=== PATIENT | male | born 1975 | race Caucasian/White ===

== ENCOUNTER 2024-06-04 21:13 | Inpatient (IN) | payer OTHER ==
[~2024-06-04] VITALS: Ht 172.7 cm; Wt 80.3 kg
[2024-06-04 22:05] LABS: BASOPHILS # (AUTO) 0.1 K/uL (0.0-0.2); BASOPHILS % (AUTO) 0.5 % (0.0-2.0); EOSINOPHILS # (AUTO) 0.1 K/uL (0.0-0.7); EOSINOPHILS % (AUTO) 1.2 % (0.0-6.0); HEMATOCRIT 34 % (39-51); HEMOGLOBIN 11.5 g/dL (13.5-17.5); LYMPHOCYTES # (AUTO) 1.1 K/uL (0.8-4.8); LYMPHOCYTES % (AUTO) 10.3 % (20.0-44.0); MEAN CORPUSCULAR HEMOGLOBIN 37 PG (26.0-33.0); MEAN CORPUSCULAR HGB CONC 34 g/dl (31.0-36.0); MEAN CORPUSCULAR VOLUME 110 fL (80-96); MONOCYTES # (AUTO) 0.9 K/uL (0.1-1.30); MONOCYTES % (AUTO) 7.9 % (2.0-12.0); NEUTROPHILS # (AUTO) 8.9 K/uL (1.8-8.9); NEUTROPHILS % (AUTO) 80.1 % (43.0-81.0); PLATELET COUNT (AUTO) 105 K/uL (150-450); RED BLOOD CELL COUNT(AUTO) 3.12 MIL/uL (4.5-6.0); RED CELL DISTRIBUTION WIDTH 17.1 % (11.5-15.0); WHITE BLOOD COUNT (AUTO) 11.1 K/uL (4.3-11.0)
[2024-06-04 22:18] LABS: INR 1.18 (0.91-1.10); PARTIAL THROMBOPLASTIN TIME 26.2 SEC (24.3-34.3); PROTHROMBIN TIME 12.4 SECS (9.2-11.1)
[2024-06-04 22:19] LABS: ALBUMIN 2.8 g/dL (3.4-5.0); BILIRUBIN,DIRECT 1.9 mg/dL (0.0-0.2); BILIRUBIN,TOTAL 2.8 mg/dL (0.2-1.0); CALCIUM, SERUM 8.5 mg/dL (8.5-10.1); CREATININE 0.8 mg/dL (0.6-1.3); POTASSIUM 3.6 mmol/L (3.5-5.1); TOTAL PROTEIN, SERUM 7.6 g/dL (6.4-8.2)
[2024-06-04] MEDS ORDERED: OLANZAPINE 10 MG VIAL IM ONE (22:24)
[2024-06-04] MEDS ORDERED: LORAZEPAM INJ 2 MG/ML VIAL ONE (22:25)
[2024-06-04] MEDS: LORAZEPAM INJ 2 MG/ML VIAL IM ONE (22:39)
[2024-06-04] MEDS: OLANZAPINE 10 MG VIAL IM ONE (22:39)
[2024-06-04 22:44] LABS: ALCOHOL, BLOOD < 3 mg/dL (0-10)
[2024-06-04 23:30] LABS: ADD URINE CULTURE NO; APPEARANCE,URINE CLEAR (CLEAR); BACTERIA,URINE Rare /HPF (None Seen); BILIRUBIN,URINE 2+ (NEGATIVE); BLOOD, URINE TRACE-INTA Ery/uL (NEGATIVE); COLOR,URINE YELLOW (YELLOW); KETONES,URINE NEGATIVE (NEGATIVE); LEUKOCYTE ESTERASE ,URINE NEGATIVE (NEGATIVE); NITRITE, URINE NEGATIVE (NEGATIVE); PH,URINE 7.5 (5.0-8.0); PROTEIN,URINE NEGATIVE (NEGATIVE); SQUAMOUS EPITHELIAL CELL,UR Few /HPF (None Seen); UGLUCOSE TRACE mg/dL (NEGATIVE); WBC,URINE 0-2 /HPF (0-3)
[2024-06-04 23:38] LABS: AMPHETAMINE, URINE NEGATIVE (NEGATIVE); BARBITURATE, URINE NEGATIVE (NEGATIVE); BENZODIAZEPINE, URINE NEGATIVE (NEGATIVE); CANNABINOID, URINE NEGATIVE (NEGATIVE); COCCAINE, URINE NEGATIVE (NEGATIVE); OPIATE, URINE NEGATIVE (NEGATIVE); PHENCYCLIDINE SCREEN,URINE NEGATIVE (NEGATIVE)
[2024-06-05] VITALS: BP 142/91; TEMP 98.2; O2SAT 96
[2024-06-05] MEDS ORDERED: ONDANSETRON HCL/PF 4 MG/2 ML VIAL IVP PRN
[2024-06-05] MEDS ORDERED: Z GUARD REMEDY 4 OZ OINT TP PRN
[2024-06-05] MEDS: LACTULOSE UDC 200 G in SODIUM CHLORIDE IRRIG SOLUTION 400 ML IR SCH
[2024-06-05] MEDS ORDERED: MAG HYDROX/AL HYDROX/SIMETH 30 ML UDC PO PRN
[2024-06-05] MEDS ORDERED: MAGNESIUM HYDROXIDE 30 ML UDC PO PRN
[2024-06-05] MEDS ORDERED: ACETAMINOPHEN 325 MG TABLET PO PRN
[2024-06-05] MEDS ORDERED: Thiamine 100 MG/ML VIAL ONE (00:39)
[2024-06-05] MEDS: Thiamine 100 MG in IV D5W 50 ML IV SCH (00:58)
[2024-06-05] MEDS: LORAZEPAM INJ 2 MG/ML VIAL IV PRN (01:29)
[2024-06-05] MEDS ORDERED: LACTULOSE 10 G/15 ML UDC (PYXIS) ONE ×3 (03:18→03:33)
[2024-06-05 04:00] VITALS: BP 151/91; TEMP 98.9; O2SAT 94
[2024-06-05] MEDS: LACTULOSE 10 G/15 ML UDC (PYXIS) PO PRN (04:20)
[2024-06-05 06:36] LABS: BASOPHILS % (AUTO) 0.5 % (0.0-2.0); EOSINOPHILS # (AUTO) 0.1 K/uL (0.0-0.7); EOSINOPHILS % (AUTO) 1.5 % (0.0-6.0); HEMATOCRIT 30 % (39-51); HEMOGLOBIN 10.6 g/dL (13.5-17.5); LYMPHOCYTES # (AUTO) 0.6 K/uL (0.8-4.8); LYMPHOCYTES % (AUTO) 7.1 % (20.0-44.0); MEAN CORPUSCULAR HEMOGLOBIN 38 PG (26.0-33.0); MEAN CORPUSCULAR HGB CONC 35 g/dl (31.0-36.0); MEAN CORPUSCULAR VOLUME 109 fL (80-96); MONOCYTES # (AUTO) 0.7 K/uL (0.1-1.30); MONOCYTES % (AUTO) 8.7 % (2.0-12.0); NEUTROPHILS # (AUTO) 6.9 K/uL (1.8-8.9); NEUTROPHILS % (AUTO) 82.2 % (43.0-81.0); PLATELET COUNT (AUTO) 97 K/uL (150-450); RED BLOOD CELL COUNT(AUTO) 2.79 MIL/uL (4.5-6.0); RED CELL DISTRIBUTION WIDTH 16.8 % (11.5-15.0); WHITE BLOOD COUNT (AUTO) 8.4 K/uL (4.3-11.0)
[2024-06-05 07:00] LABS: ALBUMIN 2.6 g/dL (3.4-5.0); BILIRUBIN,DIRECT 1.7 mg/dL (0.0-0.2); BILIRUBIN,TOTAL 2.6 mg/dL (0.2-1.0); CALCIUM, SERUM 8.9 mg/dL (8.5-10.1); CREATININE 0.7 mg/dL (0.6-1.3); MAGNESIUM 1.8 mg/dL (1.8-2.4); PHOSPHORUS 2.4 mg/dL (2.5-4.9); POTASSIUM 3.1 mmol/L (3.5-5.1); TOTAL PROTEIN, SERUM 6.9 g/dL (6.4-8.2)
[2024-06-05 08:00] VITALS: BP 136/112; TEMP 98.3; O2SAT 96
[2024-06-05 08:28] LABS: BAND % (MANUAL) 2 % (0.0-5.0); BASOPHILS % (MANUAL) 0 % (0.0-2.0); EOSINOPHILS % (MANUAL) 0 % (0-4); LYMPHOCYTES % (MANUAL) 10 % (16-48); MONOCYTES % (MANUAL) 8 % (0-11.0); NEUTROPHILS % (MANUAL) 80 (42-76); PLATELET ESTIMATE DECREASED
[2024-06-05] MEDS ORDERED: LACTULOSE 10 G/15 ML UDC (PYXIS) PO PRN (10:00)
[2024-06-05] MEDS: CHLORDIAZEPOXIDE HCL 25 MG CAPSULE PO SCH (10:41)
[2024-06-05] MEDS: THIAMINE HCL 100 MG TABLET PO SCH (10:41)
[2024-06-05] MEDS: PANTOPRAZOLE 40 MG VIAL IV SCH (10:41)
[2024-06-05] MEDS: RIFAXIMIN 550 MG TABLET PO SCH (10:41)
[2024-06-05] MEDS: FOLIC ACID 1 MG TABLET PO SCH (10:41)
[2024-06-05 12:00] VITALS: BP 153/120; TEMP 97.9; O2SAT 95
[2024-06-05] MEDS: POTASSIUM CHLORIDE 20 MEQ TAB.PRT.SR PO SCH (12:40)
[2024-06-05 16:00] VITALS: BP 131/102; TEMP 99.3; O2SAT 97
[2024-06-05] MEDS: K PHOS NEUTRAL 250 MG TABLET PO ONE (17:13)
[2024-06-05 20:00] VITALS: BP 151/100; TEMP 98.7; O2SAT 95
[2024-06-06] VITALS (7 sets, daily range): BP systolic 115–159; BP diastolic 72–112; TEMP 97.9–98.4; O2SAT 93–98
[2024-06-06 06:20] LABS: BASOPHILS % (AUTO) 0.4 % (0.0-2.0); EOSINOPHILS % (AUTO) 0.4 % (0.0-6.0); HEMATOCRIT 37 % (39-51); HEMOGLOBIN 12.6 g/dL (13.5-17.5); LYMPHOCYTES # (AUTO) 0.5 K/uL (0.8-4.8); LYMPHOCYTES % (AUTO) 4.7 % (20.0-44.0); MEAN CORPUSCULAR HEMOGLOBIN 38 PG (26.0-33.0); MEAN CORPUSCULAR HGB CONC 34 g/dl (31.0-36.0); MEAN CORPUSCULAR VOLUME 112 fL (80-96); MONOCYTES # (AUTO) 0.8 K/uL (0.1-1.30); NEUTROPHILS # (AUTO) 9.6 K/uL (1.8-8.9); NEUTROPHILS % (AUTO) 87.5 % (43.0-81.0); PLATELET COUNT (AUTO) 127 K/uL (150-450); RED BLOOD CELL COUNT(AUTO) 3.32 MIL/uL (4.5-6.0); RED CELL DISTRIBUTION WIDTH 16.7 % (11.5-15.0); WHITE BLOOD COUNT (AUTO) 10.9 K/uL (4.3-11.0)
[2024-06-06 06:38] LABS: ALBUMIN 2.8 g/dL (3.4-5.0); BILIRUBIN,DIRECT 2.1 mg/dL (0.0-0.2); BILIRUBIN,TOTAL 3.2 mg/dL (0.2-1.0); CALCIUM, SERUM 9.3 mg/dL (8.5-10.1); CREATININE 0.7 mg/dL (0.6-1.3); POTASSIUM 3.5 mmol/L (3.5-5.1); TOTAL PROTEIN, SERUM 7.6 g/dL (6.4-8.2)
[2024-06-06 08:16] LABS: BASOPHILS % (MANUAL) 0 % (0.0-2.0); EOSINOPHILS % (MANUAL) 0 % (0-4); LYMPHOCYTES % (MANUAL) 6 % (16-48); MONOCYTES % (MANUAL) 8 % (0-11.0); NEUTROPHILS % (MANUAL) 86 (42-76)
[2024-06-06 08:17] LABS: ANISOCYTOSIS 1+; PLATELET ESTIMATE DECREASED
[2024-06-06] MEDS: ASPIRIN 81 MG TAB.CHEW PO SCH (09:28)
[2024-06-06] MEDS: METOPROLOL TARTRATE 25 MG TABLET PO SCH (17:47)
[2024-06-06 18:25] LABS: ABG BASE EXCESS -0.1 mmol/L (-2.0-3.0); ABG OXYGEN SATURATION 92.5 % (94.0-98.0); ABG PCO2 29.1 mmHg (35.0-48.0); ABG PH 7.498 (7.350-7.450); ABG PO2 64.5 mmHg (83.0-108.0); ABG TOTAL HEMOGLOBIN 12.9 G/dL (13.5-17.5); AaDO2 50.4 mmHg; COHb 0.6 % (0.5-1.5); MetHb 0.2 % (0.0-1.5); O2Hb 91.8 % (94.0-97.0); SITE, ABG Right Radial; VENT MODE, BG ROOM AIR
[2024-06-07] VITALS: BP 116/72; TEMP 98.3; O2SAT 96
[2024-06-07 04:00] VITALS: BP 124/83; TEMP 98; O2SAT 97
[2024-06-07 08:00] VITALS: BP 131/97; TEMP 98.6; O2SAT 95
[2024-06-07 08:40] LABS: BASOPHILS # (AUTO) 0.1 K/uL (0.0-0.2); BASOPHILS % (AUTO) 0.7 % (0.0-2.0); EOSINOPHILS # (AUTO) 0.1 K/uL (0.0-0.7); EOSINOPHILS % (AUTO) 0.7 % (0.0-6.0); HEMATOCRIT 36 % (39-51); HEMOGLOBIN 11.8 g/dL (13.5-17.5); LYMPHOCYTES # (AUTO) 0.9 K/uL (0.8-4.8); LYMPHOCYTES % (AUTO) 7.7 % (20.0-44.0); MEAN CORPUSCULAR HEMOGLOBIN 37 PG (26.0-33.0); MEAN CORPUSCULAR HGB CONC 33 g/dl (31.0-36.0); MEAN CORPUSCULAR VOLUME 112 fL (80-96); MONOCYTES # (AUTO) 1.2 K/uL (0.1-1.30); MONOCYTES % (AUTO) 9.8 % (2.0-12.0); NEUTROPHILS # (AUTO) 9.8 K/uL (1.8-8.9); NEUTROPHILS % (AUTO) 81.1 % (43.0-81.0); PLATELET COUNT (AUTO) 175 K/uL (150-450); RED BLOOD CELL COUNT(AUTO) 3.18 MIL/uL (4.5-6.0); RED CELL DISTRIBUTION WIDTH 17.5 % (11.5-15.0)
[2024-06-07] MEDS: SPIRONOLACTONE 25 MG TABLET PO SCH (08:51)
[2024-06-07] MEDS: PANTOPRAZOLE 40 MG TABLET.DR PO SCH (08:52)
[2024-06-07 09:07] LABS: ALBUMIN 2.5 g/dL (3.4-5.0); BILIRUBIN,DIRECT 1.7 mg/dL (0.0-0.2); BILIRUBIN,TOTAL 2.6 mg/dL (0.2-1.0); CALCIUM, SERUM 8.9 mg/dL (8.5-10.1); CREATININE 0.7 mg/dL (0.6-1.3); POTASSIUM 3.4 mmol/L (3.5-5.1); TOTAL PROTEIN, SERUM 7.1 g/dL (6.4-8.2)
[2024-06-07 12:00] VITALS: BP 114/82; TEMP 98.4; O2SAT 94
[2024-06-07] MEDS: LACTULOSE 10 G/15 ML UDC (PYXIS) PO SCH (12:41)
[2024-06-07 16:00] VITALS: BP 124/90; TEMP 97.7; O2SAT 94
[2024-06-07 20:00] VITALS: BP 103/79; TEMP 97.7; O2SAT 91
[2024-06-08] VITALS (7 sets, daily range): BP systolic 98–113; BP diastolic 71–85; TEMP 97.2–98.7; O2SAT 92–97
[2024-06-08] MEDS: LACTULOSE 10 G/15 ML UDC (PYXIS) PO SCH ×2 (03:00→11:54)
[2024-06-08 06:29] LABS: BASOPHILS # (AUTO) 0.1 K/uL (0.0-0.2); BASOPHILS % (AUTO) 1.1 % (0.0-2.0); EOSINOPHILS # (AUTO) 0.2 K/uL (0.0-0.7); EOSINOPHILS % (AUTO) 1.8 % (0.0-6.0); HEMATOCRIT 35 % (39-51); HEMOGLOBIN 11.8 g/dL (13.5-17.5); LYMPHOCYTES # (AUTO) 0.8 K/uL (0.8-4.8); LYMPHOCYTES % (AUTO) 8.9 % (20.0-44.0); MEAN CORPUSCULAR HEMOGLOBIN 37 PG (26.0-33.0); MEAN CORPUSCULAR HGB CONC 34 g/dl (31.0-36.0); MEAN CORPUSCULAR VOLUME 111 fL (80-96); MONOCYTES # (AUTO) 1.1 K/uL (0.1-1.30); MONOCYTES % (AUTO) 11.9 % (2.0-12.0); NEUTROPHILS % (AUTO) 76.3 % (43.0-81.0); PLATELET COUNT (AUTO) 210 K/uL (150-450); RED BLOOD CELL COUNT(AUTO) 3.16 MIL/uL (4.5-6.0); RED CELL DISTRIBUTION WIDTH 17.7 % (11.5-15.0); WHITE BLOOD COUNT (AUTO) 9.2 K/uL (4.3-11.0)
[2024-06-08 07:01] LABS: ALBUMIN 2.5 g/dL (3.4-5.0); BILIRUBIN,TOTAL 2.6 mg/dL (0.2-1.0); CALCIUM, SERUM 9.1 mg/dL (8.5-10.1); CREATININE 0.9 mg/dL (0.6-1.3); POTASSIUM 3.2 mmol/L (3.5-5.1)
[2024-06-08] MEDS: POTASSIUM CHLORIDE 20 MEQ TAB.PRT.SR PO SCH (10:28)
[2024-06-09] VITALS: BP 121/89; TEMP 98.1; O2SAT 97
[2024-06-09 04:00] VITALS: BP 106/73; TEMP 98.1; O2SAT 98
[2024-06-09 07:14] LABS: ALBUMIN 2.4 g/dL (3.4-5.0); BILIRUBIN,TOTAL 2.5 mg/dL (0.2-1.0); CREATININE 0.7 mg/dL (0.6-1.3); POTASSIUM 3.1 mmol/L (3.5-5.1); TOTAL PROTEIN, SERUM 6.7 g/dL (6.4-8.2)
[2024-06-09 08:00] VITALS: BP 106/81; TEMP 98.1; O2SAT 97
[2024-06-09] MEDS: POTASSIUM CHLORIDE 20 MEQ TAB.PRT.SR PO ONE (09:59)
[2024-06-09] MEDS: CHLORDIAZEPOXIDE HCL 25 MG CAPSULE PO SCH (11:30)
[2024-06-09 12:00] VITALS: BP 102/76; TEMP 98.1; O2SAT 95
[2024-06-09 16:00] VITALS: BP 88/65; TEMP 97.5; O2SAT 96
[2024-06-09] MEDS: IV NS 0.9% 500 ML BAG IV ONE (17:16)
[2024-06-09] MEDS: ENSURE ENLIVE 237 ML LIQUID (VANILLA) PO SCH (17:45)
[2024-06-09 20:00] VITALS: BP 109/78; TEMP 97.9; O2SAT 95
[2024-06-10] VITALS: BP 106/65; TEMP 98; O2SAT 97
[2024-06-10 07:02] LABS: ALBUMIN 2.3 g/dL (3.4-5.0); CALCIUM, SERUM 8.8 mg/dL (8.5-10.1); CREATININE 0.8 mg/dL (0.6-1.3); POTASSIUM 3.3 mmol/L (3.5-5.1); TOTAL PROTEIN, SERUM 6.4 g/dL (6.4-8.2)
[2024-06-10 07:38] VITALS: BP 106/65; TEMP 98; O2SAT 97
[2024-06-10 08:00] VITALS: BP 102/75; TEMP 97.7; O2SAT 97
[2024-06-10] MEDS: POTASSIUM CHLORIDE 20 MEQ TAB.PRT.SR PO ONE (10:41)
[2024-06-10 12:00] VITALS: BP 100/67; TEMP 97.7; O2SAT 98
[2024-06-10 16:00] VITALS: BP 100/65; TEMP 98.2; O2SAT 98
[2024-06-10 20:00] VITALS: BP 108/69; TEMP 97.9; O2SAT 99
[2024-06-11] VITALS: BP 130/87; TEMP 97.7; O2SAT 97
[2024-06-11 04:00] VITALS: BP 105/69; TEMP 97.4; O2SAT 95
[2024-06-11 08:02] VITALS: BP 103/68; TEMP 97.5; O2SAT 95
[2024-06-11] MEDS ORDERED: PANT40TA49 PO (10:40)
[2024-06-11] MEDS ORDERED: RIFA550T PO (10:40)
[2024-06-11] MEDS ORDERED: LACT20SO4 PO (10:40)
[2024-06-11] MEDS ORDERED: Folic Acid PO (10:40)
[2024-06-11] MEDS ORDERED: ASPI-1169 PO (10:40)
[2024-06-11] MEDS ORDERED: SPIR25TA6 PO (10:40)
[2024-06-11] MEDS ORDERED: METO25TA20 PO (10:40)
[2024-06-11] MEDS ORDERED: Thiamine HCL PO (10:40)
[2024-06-11 12:00] VITALS: BP 101/70; TEMP 97.9; O2SAT 95
== END 2024-06-11 13:48 | DRG 432 ==
LOC: ER 21:21 → TELE1 23:30 → UNDODISIN 06-09 16:22
PROVIDERS: ATTEND Internal Medicine
PROC: 0W9G3ZZ Drainage of Peritoneal Cavity, Percutaneous Approach (ICD-10-PCS; principal; 2024-06-05)
DX: K70.31 Alcoholic cirrhosis of liver with ascites (principal); I21.A1 Myocardial infarction type 2; J96.01 Acute respiratory failure with hypoxia; F10.139 Alcohol abuse with withdrawal, unspecified; E87.1 Hypo-osmolality and hyponatremia; E72.20 Disorder of urea cycle metabolism, unspecified; I42.9 Cardiomyopathy, unspecified; K76.82 Hepatic encephalopathy; Y90.0 Blood alcohol level of less than 20 mg/100 ml; D63.8 Anemia in other chronic diseases classified elsewhere; I10 Essential (primary) hypertension; I48.91 Unspecified atrial fibrillation; Z88.2 Allergy status to sulfonamides; Z88.3 Allergy status to other anti-infective agents; D72.829 Elevated white blood cell count, unspecified; D53.9 Nutritional anemia, unspecified; E88.09 Other disorders of plasma-protein metabolism, not elsewhere classified; K76.0 Fatty (change of) liver, not elsewhere classified; K80.20 Calculus of gallbladder without cholecystitis without obstruction; Z53.29 Procedure and treatment not carried out because of patient's decision for other reasons; Z78.1 Physical restraint status
CPT/HCPCS: 36415; 49083; 70450-TC; 71045-TC; 80048-TC; 80053-TC; 80076-TC; 81001; 82140-TC; 82962-TC; 83690-TC; 83735-TC; 84100-TC; 84439-TC; 84443-TC; 84484-TC; 85025-TC; 85730-TC; 92526; 92611-TC; 93307-TC; 93970-TC; 94799-TC; 97110-TC; 97116-TC; 97530-TC; A4217; A4223; G0378; G0480; J2060; J2470; J3411; J3490; J7040; J7050; J7060

== ENCOUNTER → 2024-06-04 | Emergency (ER) | payer BC, OTHER ==
[~2024-06-04] VITALS: Ht 175.3 cm; Wt 90.7 kg
[~2024-06-04] MED LIST: ASPI-1169 PO; Folic Acid PO; LACT20SO4 PO; METO25TA20 PO; PANT40TA49 PO; RIFA550T PO; SPIR25TA6 PO; Thiamine HCL PO
--- NOTE | 2024-06-04 09:56 | NUR ---
Move sheet submitted (ETOH, anasarca, stable, med surg)
--- NOTE | 2024-06-04 10:20 | NUR ---
TO ER 7, NO APPARENT CHANGE IN CONDITION
[2024-06-04 10:43] LABS: BASOPHILS # (AUTO) 0.1 K/uL (0.0-0.2); BASOPHILS % (AUTO) 0.6 % (0.0-2.0); EOSINOPHILS # (AUTO) 0.1 K/uL (0.0-0.7); EOSINOPHILS % (AUTO) 0.9 % (0.0-6.0); HEMATOCRIT 34 % (39-51); HEMOGLOBIN 11.8 g/dL (13.5-17.5); LYMPHOCYTES # (AUTO) 0.8 K/uL (0.8-4.8); LYMPHOCYTES % (AUTO) 8.5 % (20.0-44.0); MEAN CORPUSCULAR HEMOGLOBIN 38 PG (26.0-33.0); MEAN CORPUSCULAR HGB CONC 34 g/dl (31.0-36.0); MEAN CORPUSCULAR VOLUME 110 fL (80-96); MONOCYTES % (AUTO) 10.2 % (2.0-12.0); NEUTROPHILS # (AUTO) 7.7 K/uL (1.8-8.9); NEUTROPHILS % (AUTO) 79.8 % (43.0-81.0); PLATELET COUNT (AUTO) 100 K/uL (150-450); RED BLOOD CELL COUNT(AUTO) 3.13 MIL/uL (4.5-6.0); RED CELL DISTRIBUTION WIDTH 17.3 % (11.5-15.0); WHITE BLOOD COUNT (AUTO) 9.7 K/uL (4.3-11.0)
[2024-06-04 10:57] LABS: CALCIUM, SERUM 8.9 mg/dL (8.5-10.1); CREATININE 0.7 mg/dL (0.6-1.3); POTASSIUM 4.2 mmol/L (3.5-5.1)
[2024-06-04 11:03] LABS: ALBUMIN 2.9 g/dL (3.4-5.0); BILIRUBIN,DIRECT 1.3 mg/dL (0.0-0.2); BILIRUBIN,TOTAL 2.3 mg/dL (0.2-1.0); TOTAL PROTEIN, SERUM 7.7 g/dL (6.4-8.2)
--- NOTE | 2024-06-04 12:03 | NUR ---
Patient given written and verbal discharge instructions. Patient verbalizes understanding of instructions. Patient is ambulatory with steady gait. Patient accompanied by rehab staff.
[2024-06-04 12:11] VITALS: BP 152/102; TEMP 98.8; O2SAT 94
== END | disposition home or self-care (01) ==
LOC: ER 08:50
DX: R60.1 Generalized edema (principal); K74.60 Unspecified cirrhosis of liver; R14.0 Abdominal distension (gaseous); R06.02 Shortness of breath; F10.10 Alcohol abuse, uncomplicated; Z88.2 Allergy status to sulfonamides; Z88.8 Allergy status to other drugs, medicaments and biological substances
CPT/HCPCS: 36415; 71045-TC; 80048-TC; 80076-TC; 83690-TC; 85025-TC; G0480